=== PATIENT | male | born 1975 | race African-American/Black ===

== ENCOUNTER 2017-03-18 14:51 | Emergency (ER) | payer MEDICAID ==
[~2017-03-18] VITALS: Ht 180.3 cm; Wt 84.0 kg
[2017-03-18 15:09] VITALS: BP 116/80
== END 2017-03-18 16:26 | disposition left against medical advice (07) ==
LOC: ER 15:22
DX: R07.9 Chest pain, unspecified (principal); Z53.21 Procedure and treatment not carried out due to patient leaving prior to being seen by health care provider
CPT/HCPCS: 93005

== ENCOUNTER 2022-02-21 10:12 | Inpatient (IN) | payer MEDICAID, OTHER ==
[~2022-02-21] VITALS: Ht 182.9 cm; Wt 80.3 kg
[2022-02-21] MEDS ORDERED: ACETAMINOPHEN 325MG TABLET PO ONE (10:45)
[2022-02-21 10:55] LABS: BASOPHILS % 0.8 % (0.0-2.0); EOSINOPHILS % 3.6 % (0.0-5.0); HEMATOCRIT. 27.2 % (42.0-52.0); LYMPHOCYTES % 15.6 % (20.0-50.0); MEAN CORPUSCULAR HEMOGLOBIN 31.1 pg (28.0-32.0); MEAN CORPUSCULAR VOLUME 94.4 fL (80.0-94.0); MEAN PLATELET VOLUME 9.4 fl (7.4-10.4); MONOCYTES % 8.7 % (2.0-8.0); NEUTROPHILS % 71.3 % (40.0-76.0); PLATELET 179 x1000/uL (130-400); RED BLOOD CELL COUNT 2.88 mill/uL (4.7-6.1); RED CELL DISTRIBUTION WIDTH 15.2 % (11.6-14.6)
[2022-02-21 11:19] LABS: CHLORIDE 119 mEq/L (98-107)
[2022-02-21 11:31] LABS: ETHANOL BLOOD < 10 mg/dL
[2022-02-21] MEDS ORDERED: HYDRALAZINE 20MG/ML VIAL IV ONE (12:15)
[2022-02-21] MEDS ORDERED: ASPIRIN 325MG TABLET PO NR (12:15)
[2022-02-21 13:10] LABS: BG BASE EXCESS -0.1 mmol/L (-2.0-2.0); BG CARBOXYHEMOGLOBIN 0.9 % (0.5-1.5); BG DEOXYHEMOGLOBIN 12.9 % (0.0-5.0); BG FRACTION INSPIRED OXYGEN 34; BG HCO3 ACT 23.1 mmol/L (22.0-26.0); BG METHEMOGLOBIN 0.3 % (0.0-1.5); BG OXYGEN SATURATION 86.9 % (92.0-98.5); BG OXYHEMOGLOBIN 85.9 % (94.0-97.0); BG PCO2 32.1 mmHg (35.0-45.0); BG PH 7.475 (7.350-7.450); BG PO2 50.9 mmHg (75.0-100.0); BG SAMPLE SITE RIGHT RADIAL; BG TOTAL HEMOGLOBIN 9.9 g/dL (12.0-18.0); BG VENT MODE NASAL CANNULA
[2022-02-21] MEDS: CLONIDINE 0.1MG TABLET PO SCH ×2 (13:45→17:00)
[2022-02-21] MEDS ORDERED: HYDRALAZINE 20MG/ML VIAL IV PRN (13:45)
[2022-02-21] MEDS: HYDRALAZINE HCL 100MG TABLET PO SCH ×2 (14:00→22:44)
[2022-02-21] MEDS ORDERED: IPRATROPIUM/ALBUTEROL 0.5-3(2.5)MG/3ML NEB HHN PRN (14:15)
[2022-02-21] MEDS ORDERED: AZITHROMYCIN 500MG/250ML 250 ML IV SCH (14:15)
[2022-02-21] MEDS ORDERED: CEFTRIAXONE 1 G PREMIX 50 ML IV SCH (14:15)
[2022-02-21] MEDS: AMLODIPINE 5MG TABLET PO SCH (17:00)
[2022-02-21] MEDS: IPRATROPIUM/ALBUTEROL 0.5-3(2.5)MG/3ML NEB HHN SCH (19:49)
[2022-02-21] MEDS ORDERED: MORPHINE SULFATE 2 MG/ML CPJ (NOT FOR IM USE) IV SCH (21:45)
[2022-02-21 23:36] VITALS: BP 176/102
[2022-02-21 23:59] VITALS: BP 176/102
[2022-02-22] VITALS (21 sets, daily range): BP systolic 128–188; BP diastolic 77–127
[2022-02-22] MEDS: IPRATROPIUM/ALBUTEROL 0.5-3(2.5)MG/3ML NEB HHN SCH ×4 (01:23→22:18)
[2022-02-22] MEDS ORDERED: FERR-63 PO (01:42)
[2022-02-22] MEDS ORDERED: SEVELAMER PO (01:42)
[2022-02-22] MEDS ORDERED: SEVELAMER (01:42)
[2022-02-22] MEDS ORDERED: LABE100T9 PO (01:42)
[2022-02-22] MEDS ORDERED: CALC0.253 PO (01:42)
[2022-02-22] MEDS ORDERED: ISOS60TA76 PO (01:42)
[2022-02-22] MEDS ORDERED: CLOP75TA33 PO (01:42)
[2022-02-22] MEDS ORDERED: ATOR40TA70 PO (01:42)
[2022-02-22] MEDS ORDERED: DOCU250C14 PO (01:42)
[2022-02-22] MEDS ORDERED: FUROSEMIDE 40MG/4ML VIAL IVP NR (02:15)
[2022-02-22] MEDS ORDERED: GUAIFENESIN 200MG/10ML SUGAR FREE UDC PO PRN (02:15)
[2022-02-22] MEDS ORDERED: DOCUSATE SODIUM 250MG CAPSULE PO SCH (02:30)
[2022-02-22] MEDS: MORPHINE SULFATE 2 MG/ML CPJ (NOT FOR IM USE) IV PRN ×3 (02:32→11:38)
[2022-02-22] MEDS: ZOLPIDEM TARTRATE 5MG TABLET PO PRN ×2 (02:33→23:27)
[2022-02-22 05:23] LABS: CHLORIDE 112 mEq/L (98-107)
[2022-02-22 05:29] LABS: BASOPHILS % 0.7 % (0.0-2.0); EOSINOPHILS % 3.9 % (0.0-5.0); HEMATOCRIT. 27.7 % (42.0-52.0); LYMPHOCYTES % 18.6 % (20.0-50.0); MEAN CORPUSCULAR HEMOGLOBIN 30.4 pg (28.0-32.0); MEAN CORPUSCULAR VOLUME 93.4 fL (80.0-94.0); MEAN PLATELET VOLUME 9.7 fl (7.4-10.4); MONOCYTES % 9.4 % (2.0-8.0); NEUTROPHILS % 67.4 % (40.0-76.0); PLATELET 167 x1000/uL (130-400); RED BLOOD CELL COUNT 2.97 mill/uL (4.7-6.1); RED CELL DISTRIBUTION WIDTH 14.8 % (11.6-14.6)
[2022-02-22] MEDS: HYDRALAZINE HCL 100MG TABLET PO SCH ×3 (06:26→23:18)
[2022-02-22] MEDS ORDERED: HYDRALAZINE 20MG/ML VIAL IV PRN (07:00)
[2022-02-22] MEDS: ACETAMINOPHEN 650MG/20.3ML UDC PO PRN ×3 (08:16→20:50)
[2022-02-22] MEDS: CLOPIDOGREL 75MG TABLET PO SCH (08:16)
[2022-02-22] MEDS: CALCITRIOL 0.25MCG CAPSULE PO SCH (08:17)
[2022-02-22] MEDS: ISOSORBIDE MONONITRATE 60MG TABLET SR 24HR PO SCH (08:17)
[2022-02-22] MEDS: HEPARIN 5000 UNITS/ML VIAL SUBCUT SCH ×2 (08:18→23:18)
[2022-02-22] MEDS: AMLODIPINE 5MG TABLET PO SCH ×2 (08:18→23:19)
[2022-02-22] MEDS: ASPIRIN 81MG EC TABLET PO SCH (08:18)
[2022-02-22] MEDS: CLONIDINE 0.1MG TABLET PO SCH ×3 (08:18→17:13)
[2022-02-22] MEDS ORDERED: LABETALOL HCL 100MG TABLET PO SCH (09:00)
[2022-02-22] MEDS ORDERED: FERROUS SULFATE 325MG TABLET PO SCH ×2 (09:00)
[2022-02-22] MEDS ORDERED: ATORVASTATIN CALCIUM 40MG TABLET PO SCH (09:00)
[2022-02-22] MEDS: LABETALOL HCL 100MG TABLET PO SCH ×2 (11:38→23:19)
[2022-02-22] MEDS ORDERED: NALOXONE HCL 0.4MG/ML VIAL IV PRN (13:30)
[2022-02-22] MEDS ORDERED: DOCUSATE SODIUM 250MG CAPSULE PO PRN (13:30)
[2022-02-22] MEDS ORDERED: AZITHROMYCIN 500 MG in DEXT 5% WATER 250 ML IV SCH (15:00)
[2022-02-22] MEDS ORDERED: CEFTRIAXONE 1,000 MG in DEXTROSE 5% WATER 50 ML IV SCH (18:00)
[2022-02-22] MEDS: FERROUS SULFATE 325MG TABLET PO SCH (18:06)
[2022-02-22] MEDS: HYDROCODONE/ACETAMINOPHEN 5/325MG TABLET PO PRN (23:27)
[2022-02-23] VITALS (18 sets, daily range): BP systolic 110–152; BP diastolic 61–106
[2022-02-23] MEDS: IPRATROPIUM/ALBUTEROL 0.5-3(2.5)MG/3ML NEB HHN SCH ×3 (02:08→14:00)
[2022-02-23] MEDS: ACETAMINOPHEN 650MG/20.3ML UDC PO PRN ×2 (03:43→14:44)
[2022-02-23] MEDS: HYDRALAZINE HCL 100MG TABLET PO SCH ×2 (06:03→14:00)
[2022-02-23 07:57] LABS: BASOPHILS % 0.8 % (0.0-2.0); EOSINOPHILS % 7.6 % (0.0-5.0); HEMOGLOBIN. 9.1 g/dL (14.0-18.0); MEAN CORPUSCULAR HEMOGLOBIN 31.3 pg (28.0-32.0); MEAN CORPUSCULAR VOLUME 92.6 fL (80.0-94.0); MEAN PLATELET VOLUME 9.2 fl (7.4-10.4); MONOCYTES % 8.9 % (2.0-8.0); NEUTROPHILS % 64.7 % (40.0-76.0); PLATELET 191 x1000/uL (130-400); RED BLOOD CELL COUNT 2.91 mill/uL (4.7-6.1); RED CELL DISTRIBUTION WIDTH 14.8 % (11.6-14.6)
[2022-02-23] MEDS: HYDROCODONE/ACETAMINOPHEN 5/325MG TABLET PO PRN (08:16)
[2022-02-23] MEDS: CLOPIDOGREL 75MG TABLET PO SCH (08:17)
[2022-02-23] MEDS: ASPIRIN 81MG EC TABLET PO SCH (08:17)
[2022-02-23] MEDS: FERROUS SULFATE 325MG TABLET PO SCH ×2 (08:17→17:36)
[2022-02-23] MEDS: CALCITRIOL 0.25MCG CAPSULE PO SCH (08:18)
[2022-02-23] MEDS: LABETALOL HCL 100MG TABLET PO SCH (08:18)
[2022-02-23] MEDS: HEPARIN 5000 UNITS/ML VIAL SUBCUT SCH (08:18)
[2022-02-23] MEDS: CLONIDINE 0.1MG TABLET PO SCH ×3 (08:19→17:00)
[2022-02-23] MEDS: AMLODIPINE 5MG TABLET PO SCH (08:19)
[2022-02-23] MEDS: ISOSORBIDE MONONITRATE 60MG TABLET SR 24HR PO SCH (08:40)
[2022-02-23] MEDS ORDERED: FUROSEMIDE 40MG/4ML VIAL IVP SCH (12:00)
[2022-02-23] MEDS ORDERED: EPOETIN ALFA-EPBX 4,000 UNIT/ML VIAL SUBCUT SCH (21:00)
[2022-02-23] MEDS ORDERED: ATORVASTATIN CALCIUM 40MG TABLET PO SCH (21:00)
[2022-02-24] MEDS ORDERED: HYDR-4001 MT (00:34)
[2022-02-26 22:22] LABS: HEPATITIS B SURFACE AB < 3.1 mIU/mL
[2022-02-26 22:32] LABS: HEPATITIS B SURFACE ANTIGEN NEGATIVE
== END 2022-02-23 18:30 | disposition home or self-care (01) | DRG 194 ==
LOC: ER 10:12 → MICUSO 12:57 → EDBEDREQ 13:04 → EDBEDREQSVC 13:04 → EDBEDREQTM 13:04 → 5EST 23:49
PROVIDERS: ADMIT Internal Medicine; ATTEND Internal Medicine
PROC: 5A09357 Assistance with Respiratory Ventilation, Less than 24 Consecutive Hours, Continuous Positive Airway Pressure (ICD-10-PCS; principal; 2022-02-21)
PROC: 5A09357 Assistance with Respiratory Ventilation, Less than 24 Consecutive Hours, Continuous Positive Airway Pressure (ICD-10-PCS; 2022-02-22)
PROC: 5A1D70Z Performance of Urinary Filtration, Intermittent, Less than 6 Hours Per Day (ICD-10-PCS; 2022-02-22)
PROC: 5A1D70Z Performance of Urinary Filtration, Intermittent, Less than 6 Hours Per Day (ICD-10-PCS; 2022-02-23)
DX: I13.2 Hypertensive heart and chronic kidney disease with heart failure and with stage 5 chronic kidney disease, or end stage renal disease (principal); J96.01 Acute respiratory failure with hypoxia; J18.9 Pneumonia, unspecified organism; E46 Unspecified protein-calorie malnutrition; E87.0 Hyperosmolality and hypernatremia; D63.1 Anemia in chronic kidney disease; E88.09 Other disorders of plasma-protein metabolism, not elsewhere classified; N18.6 End stage renal disease; I50.21 Acute systolic (congestive) heart failure; Z20.822 Contact with and (suspected) exposure to COVID-19; D72.829 Elevated white blood cell count, unspecified; K21.9 Gastro-esophageal reflux disease without esophagitis; F17.210 Nicotine dependence, cigarettes, uncomplicated; Z79.899 Other long term (current) drug therapy; Z99.2 Dependence on renal dialysis; Z68.24 Body mass index [BMI] 24.0-24.9, adult
CPT/HCPCS: 36415; 36600; 71045; 80048; 80053; 80320; 82375; 82805; 83735; 83880; 84145; 84443; 84484; 85025; 85379; 86705; 86706; 87340; 87426; 90935; 93005; 93306; 93970; 94640; 94660; 99291; C9803; J0360; J0456; J0696; J0885; J1644; J1940; J2270; J7060; G0480

== ENCOUNTER 2022-09-15 12:09 | Inpatient (IN) | payer MEDICARE, MEDICAID ==
[~2022-09-15] VITALS: Ht 180.3 cm; Wt 79.8 kg
[~2022-09-15 12:09] MED LIST: ATOR40TA70 PO; CALC0.253 PO; CLOP75TA33 PO; DOCU250C14 PO; FERR-63 PO; HYDR-4001 MT; ISOS60TA76 PO; LABE100T9 PO; SEVELAMER; SEVELAMER PO
[2022-09-15 12:22] VITALS: O2SAT 100
[2022-09-15 13:12] LABS: HEMATOCRIT. 29.9 % (42.0-52.0); MEAN CORPUSCULAR HEMOGLOBIN 30.1 pg (28.0-32.0); MEAN CORPUSCULAR VOLUME 90.2 fL (80.0-94.0); RED BLOOD CELL COUNT 3.31 mill/uL (4.7-6.1); RED CELL DISTRIBUTION WIDTH 16.6 % (11.6-14.6)
[2022-09-15 13:13] LABS: EOSINOPHILS % 4.4 % (0.0-5.0); LYMPHOCYTES % 36.3 % (20.0-50.0); MEAN PLATELET VOLUME 8.7 fl (7.4-10.4); MONOCYTES % 7.4 % (2.0-8.0); NEUTROPHILS % 50.9 % (40.0-76.0); PLATELET 284 x1000/uL (130-400)
[2022-09-15 13:21] LABS: CHLORIDE 114 mEq/L (98-107)
[2022-09-15 13:23] LABS: INR 1.1; PROTHROMBIN TIME 11.7 sec (9.6-11.0)
[2022-09-15] MEDS ORDERED: DEXTROSE 50% WATER 50ML SYRINGE IV ONE (14:00)
[2022-09-15] MEDS ORDERED: SODIUM BICARBONATE 8.4% 1 MEQ/ML 50ML SYR IV ONE (14:00)
[2022-09-15] MEDS ORDERED: CALCIUM GLUCONATE 1GM PREMIX 100 ML IV NR (14:00)
[2022-09-15] MEDS ORDERED: INSULIN REGULAR (HUMULIN R) 300UNITS/3ML VIAL IV ONE (14:00)
[2022-09-15] MEDS ORDERED: INSULIN REGULAR (HUMULIN R) 300UNITS/3ML VIAL IV NR (14:00)
[2022-09-15] MEDS ORDERED: SODIUM BICARBONATE 8.4% 1 MEQ/ML 50ML SYR IV NR (14:00)
[2022-09-15] MEDS ORDERED: CALCIUM GLUCONATE 1,000 MG in DEXT 5% WATER 100 ML IV ONE (14:00)
[2022-09-15] MEDS ORDERED: LORAZEPAM 0.5MG TABLET PO PRN (18:15)
[2022-09-15] MEDS ORDERED: IPRATROPIUM/ALBUTEROL 0.5-3(2.5)MG/3ML NEB HHN PRN (18:15)
[2022-09-15] MEDS ORDERED: MAGNESIUM/ALUMINUM HYDROXIDE/SIMETHICONE 30ML UDC PO PRN (18:15)
[2022-09-15] MEDS ORDERED: ONDANSETRON HCL 4MG/2ML INJ IV PRN (18:15)
[2022-09-15] MEDS ORDERED: GUAIFENESIN 200MG/10ML SUGAR FREE UDC PO PRN (18:15)
[2022-09-15] MEDS ORDERED: DIPHENHYDRAMINE 50MG/ML VIAL IV PRN (18:15)
[2022-09-15] MEDS ORDERED: CLONIDINE 0.1MG TABLET PO PRN (18:15)
[2022-09-15] MEDS ORDERED: DOCUSATE SODIUM 100MG CAPSULE PO PRN (18:15)
[2022-09-15] MEDS ORDERED: ACETAMINOPHEN 325MG TABLET PO PRN (18:15)
[2022-09-15] MEDS ORDERED: DEXTROSE 50% WATER 50ML SYRINGE IV NR (19:35)
[2022-09-15] MEDS ORDERED: ENOXAPARIN 30MG/0.3ML SYR SUBCUT SCH (20:00)
[2022-09-15 20:46] LABS: FOLIC ACID (FOLATE) SERUM 8.9 ng/mL (>5.38)
[2022-09-15] MEDS ORDERED: FAMOTIDINE 20MG TABLET PO SCH (21:00)
[2022-09-15 21:30] VITALS: BP 201/105; PULSE 71; RESP 20; TEMP 98.2
[2022-09-15] MEDS: ATORVASTATIN CALCIUM 40MG TABLET PO SCH (21:46)
[2022-09-15] MEDS: LABETALOL HCL 100MG TABLET PO SCH (21:52)
[2022-09-15] MEDS: ACETAMINOPHEN 325MG TABLET PO PRN (21:53)
[2022-09-15 22:08] LABS: CLARITY URINE CLEAR (CLEAR); COLOR URINE YELLOW (YELLOW); KETONES URINE NEGATIVE (NEGATIVE); LEUKOCYTE ESTERASE URINE NEGATIVE (NEGATIVE); NITRITE URINE NEGATIVE (NEGATIVE); OCCULT BLOOD URINE NEGATIVE (NEGATIVE); PH URINE 5.5 (4.5-8.0); PROTEIN URINE 1+ (NEGATIVE); SPECIFIC GRAVITY URINE 1.015 (1.005-1.030); UROBILINOGEN URINE 0.2 E.U./dL (0.2-1.0)
[2022-09-15 22:19] LABS: *AMPHETAMINES SCREEN URINE NEGATIVE (NEGATIVE); *BARBITURATES SCREEN URINE NEGATIVE (NEGATIVE); *BENZODIAZEPINES SCREEN URINE NEGATIVE (NEGATIVE); *COCAINE SCREEN URINE NEGATIVE (NEGATIVE); CANNABINOID URINE SCREEN PRESUMTIVE POSITIVE (NEGATIVE); METHADONE URINE SCREEN NEGATIVE (NEGATIVE); OPIATES URINE SCREEN NEGATIVE (NEGATIVE); PHENCYCLIDINE URINE SCREEN NEGATIVE (NEGATIVE)
[2022-09-15 22:30] VITALS: BP 201/105; PULSE 71; RESP 20; TEMP 98.2
[2022-09-16] VITALS (13 sets, daily range): BP systolic 138–179; BP diastolic 70–111; PULSE 53–77; RESP 17–20; TEMP 97–98.4
[2022-09-16 02:09] LABS: CREATINE KINASE MB FRACTION 1.3 ng/mL (0.5-3.6)
[2022-09-16 07:08] LABS: EOSINOPHILS % 7.5 % (0.0-5.0); HEMATOCRIT. 27.8 % (42.0-52.0); HEMOGLOBIN. 9.7 g/dL (14.0-18.0); LYMPHOCYTES % 43.9 % (20.0-50.0); MEAN CORPUSCULAR HEMOGLOBIN 31.1 pg (28.0-32.0); MEAN CORPUSCULAR VOLUME 89.3 fL (80.0-94.0); MEAN PLATELET VOLUME 9.2 fl (7.4-10.4); MONOCYTES % 8.3 % (2.0-8.0); NEUTROPHILS % 39.3 % (40.0-76.0); PLATELET 250 x1000/uL (130-400); RED BLOOD CELL COUNT 3.11 mill/uL (4.7-6.1); RED CELL DISTRIBUTION WIDTH 16.7 % (11.6-14.6)
[2022-09-16] MEDS ORDERED: CLOPIDOGREL 75MG TABLET PO SCH (09:00)
[2022-09-16] MEDS: LABETALOL HCL 100MG TABLET PO SCH ×3 (09:00→20:21)
[2022-09-16 10:14] LABS: CREATINE KINASE MB FRACTION 1.3 ng/mL (0.5-3.6)
[2022-09-16] MEDS: CALCITRIOL 0.25MCG CAPSULE PO SCH (10:24)
[2022-09-16] MEDS: FERROUS SULFATE 325MG TABLET PO SCH ×2 (10:24→19:23)
[2022-09-16] MEDS: ISOSORBIDE MONONITRATE 60MG TABLET SR 24HR PO SCH (10:25)
[2022-09-16] MEDS: ACETAMINOPHEN 325MG TABLET PO PRN ×2 (10:26→19:23)
[2022-09-16 10:48] LABS: CHLORIDE 118 mEq/L (98-107)
[2022-09-16 11:05] LABS: T4 FREE 0.92 ng/dL (0.76-1.46)
[2022-09-16] MEDS ORDERED: LIDOCAINE HCL 1% 10 MG/ML 10ML VIAL ONE (14:10)
[2022-09-16] MEDS: OXYCODONE HCL 5MG TABLET PO PRN ×2 (16:27→22:32)
[2022-09-16] MEDS ORDERED: NALOXONE HCL 0.4MG/ML VIAL IV PRN (16:30)
[2022-09-16 17:38] LABS: HEPATITIS B SURFACE ANTIGEN NEGATIVE
[2022-09-16 19:38] LABS: TOTAL IRON BINDING CAPACITY 251 ug/dL (250-450)
[2022-09-16] MEDS: ATORVASTATIN CALCIUM 40MG TABLET PO SCH (20:22)
[2022-09-16] MEDS ORDERED: EPOETIN ALFA 2,000 UNIT/ML VIAL SUBCUT PRN (22:16)
[2022-09-16] MEDS ORDERED: EPOETIN ALFA 2,000 UNIT/ML VIAL SUBCUT NR (22:30)
[2022-09-17] VITALS: BP 150/79; PULSE 64; RESP 20; TEMP 97.2
[2022-09-17] MEDS: ACETAMINOPHEN 325MG TABLET PO PRN ×2 (02:15→14:05)
[2022-09-17 04:00] VITALS: BP 145/86; PULSE 54; RESP 20; TEMP 97.6
[2022-09-17] MEDS: OXYCODONE HCL 5MG TABLET PO PRN ×3 (04:46→16:56)
[2022-09-17 07:11] LABS: HEMATOCRIT 28.6 % (42.0-52.0); HEMOGLOBIN 9.8 g/dL (14.0-18.0); MEAN CORPUSCULAR HEMOGLOBIN 30.2 pg (28.0-32.0); MEAN CORPUSCULAR VOLUME 88.7 fL (80.0-94.0); PLATELET 249 x1000/uL (130-400); RED BLOOD CELL COUNT 3.23 mill/uL (4.7-6.1); RED CELL DISTRIBUTION WIDTH 16.6 % (11.6-14.6)
[2022-09-17 08:00] VITALS: BP 138/82; PULSE 58; RESP 20; TEMP 97.4
[2022-09-17] MEDS: LABETALOL HCL 100MG TABLET PO SCH (09:00)
[2022-09-17] MEDS: ISOSORBIDE MONONITRATE 60MG TABLET SR 24HR PO SCH (09:05)
[2022-09-17] MEDS: CALCITRIOL 0.25MCG CAPSULE PO SCH (09:06)
[2022-09-17] MEDS: FERROUS SULFATE 325MG TABLET PO SCH ×2 (09:06→16:56)
[2022-09-17 10:13] LABS: CHLORIDE 109 mEq/L (98-107)
[2022-09-17 10:22] LABS: PHOSPHORUS 4.8 mg/dL (2.5-4.9)
[2022-09-17 12:00] VITALS: BP 157/88; PULSE 56; RESP 18; TEMP 98.1
[2022-09-17 16:56] VITALS: BP 157/88; PULSE 56; RESP 18
[2022-09-18] MEDS ORDERED: EPOETIN ALFA 2,000 UNIT/ML VIAL SUBCUT SCH (21:00)
== END 2022-09-17 17:28 | disposition left against medical advice (07) | DRG 640 ==
LOC: ER 12:09 → 7WST 17:07
PROVIDERS: ADMIT Hospitalist; ATTEND Hospitalist
PROC: 5A1D70Z Performance of Urinary Filtration, Intermittent, Less than 6 Hours Per Day (ICD-10-PCS; principal; 2022-09-16)
PROC: 02HV33Z Insertion of Infusion Device into Superior Vena Cava, Percutaneous Approach (ICD-10-PCS; 2022-09-16)
PROC: B548ZZA Ultrasonography of Superior Vena Cava, Guidance (ICD-10-PCS; 2022-09-16)
PROC: B5181ZA Fluoroscopy of Superior Vena Cava using Low Osmolar Contrast, Guidance (ICD-10-PCS; 2022-09-16)
DX: E87.5 Hyperkalemia (principal); N18.6 End stage renal disease; I12.0 Hypertensive chronic kidney disease with stage 5 chronic kidney disease or end stage renal disease; D63.1 Anemia in chronic kidney disease; E87.29 Other acidosis; E87.8 Other disorders of electrolyte and fluid balance, not elsewhere classified; Z53.29 Procedure and treatment not carried out because of patient's decision for other reasons; E87.70 Fluid overload, unspecified; F41.9 Anxiety disorder, unspecified; I25.10 Atherosclerotic heart disease of native coronary artery without angina pectoris; I50.9 Heart failure, unspecified; Z99.2 Dependence on renal dialysis; Z91.158 Patient's noncompliance with renal dialysis for other reason; Z91.199 Patient's noncompliance with other medical treatment and regimen due to unspecified reason; Z79.899 Other long term (current) drug therapy
CPT/HCPCS: 36415; 36556; 71045; 76937; 77001; 80053; 80305; 81003; 82550; 82553; 82607; 82746; 83540; 83550; 83735; 84100; 84439; 84443; 84484; 85025; 85027; 86705; 86709; 86803; 87340; 90935; 93005; 99291; C1752; J0610; J1642; J1650; J1815; J3490; J7060

== ENCOUNTER 2022-10-02 10:26 | Emergency (ER) | payer MEDICARE, MEDICAID ==
[~2022-10-02] VITALS: Ht 180.3 cm; Wt 84.0 kg
[~2022-10-02 10:26] MED LIST changes: -HYDR-4001 MT
[2022-10-02 10:41] VITALS: BP 120/76; PULSE 86; RESP 16; TEMP 98.6; O2SAT 99
[2022-10-02] MEDS ORDERED: BACI28.32 TP (10:54)
== END 2022-10-02 11:15 | disposition home or self-care (01) ==
LOC: ER 10:26
DX: S61.512D Laceration without foreign body of left wrist, subsequent encounter (principal); I13.2 Hypertensive heart and chronic kidney disease with heart failure and with stage 5 chronic kidney disease, or end stage renal disease; N18.6 End stage renal disease; I50.9 Heart failure, unspecified; F41.9 Anxiety disorder, unspecified; I25.2 Old myocardial infarction; Z99.2 Dependence on renal dialysis; Z79.899 Other long term (current) drug therapy; X58.XXXD Exposure to other specified factors, subsequent encounter
CPT/HCPCS: 99282

== ENCOUNTER 2023-04-28 07:20 | Inpatient (IN) | payer MEDICARE, MEDICAID ==
[2023-04-28] VITALS (16 sets, daily range): BP systolic 123–178; BP diastolic 75–107; PULSE 57–64; RESP 16–19; TEMP 97.1–98.2
[~2023-04-28] VITALS: Ht 180.3 cm; Wt 74.8 kg
[~2023-04-28 07:20] MED LIST changes: +CLOP-31 PO; -CLOP75TA33 PO; +FURO40TA5 PO; +LISI20TA31 PO; +OMEP20CA14 PO; +SEVE800T8 PO; -SEVELAMER; -SEVELAMER PO
[2023-04-28 08:18] LABS: BASOPHILS % 0.7 % (0.0-2.0); EOSINOPHILS % 4.9 % (0.0-5.0); HEMATOCRIT. 40.6 % (42.0-52.0); HEMOGLOBIN. 13.1 g/dL (14.0-18.0); LYMPHOCYTES % 19.6 % (20.0-50.0); MEAN CORPUSCULAR HEMOGLOBIN 32.3 pg (28.0-32.0); MEAN CORPUSCULAR HGB CONC 32.3 g/dL (31.0-37.0); MEAN PLATELET VOLUME 9.1 fl (7.4-10.4); MONOCYTES % 5.7 % (2.0-8.0); NEUTROPHILS % 69.1 % (40.0-76.0); PLATELET 256 x1000/uL (130-400); RED BLOOD CELL COUNT 4.06 mill/uL (4.7-6.1); RED CELL DISTRIBUTION WIDTH 17.2 % (11.6-14.6); WHITE BLOOD COUNT 7.7 x1000/uL (4.5-11.0)
[2023-04-28] MEDS: ONDANSETRON HCL 4MG/2ML INJ IV ONE (08:22)
[2023-04-28 08:41] LABS: ALANINE AMINOTRANSFERASE 10 IU/L (10-49); ALBUMIN 4.7 g/dL (3.2-4.8); ASPARTATE AMINOTRANSFERASE 21 IU/L (<34); CALCIUM 9.4 mg/dL (8.7-10.4); CARBON DIOXIDE 21 mEq/L (21-32); CHLORIDE 110 mEq/L (98-107); CREATININE 4.4 mg/dL (0.6-1.3); GLUCOSE 78 mg/dL (70-105); POTASSIUM 6.1 mEq/L (3.5-5.1); PROTEIN TOTAL 7.8 g/dL (6.0-8.3); SODIUM 136 mEq/L (136-145); UREA NITROGEN BLOOD 40 mg/dL (9-23)
[2023-04-28 08:53] LABS: CLARITY URINE CLEAR (CLEAR); COLOR URINE YELLOW (YELLOW); GLUCOSE URINE NEGATIVE (NEGATIVE); KETONES URINE NEGATIVE (NEGATIVE); LEUKOCYTE ESTERASE URINE TRACE (NEGATIVE); NITRITE URINE NEGATIVE (NEGATIVE); OCCULT BLOOD URINE NEGATIVE (NEGATIVE); PROTEIN URINE TRACE (NEGATIVE); SPECIFIC GRAVITY URINE 1.012 (1.005-1.030); UROBILINOGEN URINE 0.2 E.U./dL (0.2-1.0)
[2023-04-28 08:53] LABS: TROPONIN I HIGH SENSITIVITY 101 ng/L (3.0-53)
[2023-04-28 09:09] LABS: BACTERIA URINE NONE SEEN; RBC URINE 0-2 /hpf (0-2); SQUAMOUS EPITHELIAL CELL URINE RARE /lpf (RARE/1+); WBC URINE 0-2 /hpf (0-2); YEAST URINE NONE SEEN
[2023-04-28] MEDS ORDERED: ALBUTEROL (0.083%) 2.5MG/3ML NEB HHN ONE (10:00)
[2023-04-28] MEDS: CALCIUM CHLORIDE 1GM/10ML SYR IV ONE (10:43)
[2023-04-28] MEDS: SODIUM BICARBONATE 8.4% 1 MEQ/ML 50ML SYR IV ONE (10:44)
[2023-04-28] MEDS: DEXTROSE 50% WATER 50ML SYRINGE IV ONE (10:44)
[2023-04-28] MEDS: INSULIN REGULAR (HUMULIN R) 300UNITS/3ML VIAL IV ONE (10:44)
[2023-04-28 10:55] LABS: BG BASE EXCESS -9.6 mmol/L (-2.0-2.0); BG CARBOXYHEMOGLOBIN 4.8 % (0.5-1.5); BG FRACTION INSPIRED OXYGEN 21; BG HCO3 ACT 14.6 mmol/L (22.0-26.0); BG METHEMOGLOBIN 0.2 % (0.0-1.5); BG OXYGEN SATURATION 96.8 % (92.0-98.5); BG PCO2 27.7 mmHg (35.0-45.0); BG PH 7.339 (7.350-7.450); BG PO2 92.4 mmHg (75.0-100.0); BG SAMPLE SITE RIGHT BRACHIAL; BG VENT MODE ROOM AIR
[2023-04-28] MEDS ORDERED: MAGNESIUM/ALUMINUM HYDROXIDE/SIMETHICONE 30ML UDC PO PRN (12:15)
[2023-04-28] MEDS ORDERED: IPRATROPIUM/ALBUTEROL 0.5-3(2.5)MG/3ML NEB HHN PRN (12:15)
[2023-04-28] MEDS ORDERED: CLONIDINE 0.1MG TABLET PO PRN (12:15)
[2023-04-28] MEDS ORDERED: GUAIFENESIN 200MG/10ML SUGAR FREE UDC PO PRN (12:15)
[2023-04-28] MEDS ORDERED: DEXTROSE 50% WATER 50ML SYRINGE IV PRN (12:15)
[2023-04-28] MEDS ORDERED: DOCUSATE SODIUM 100MG CAPSULE PO PRN (12:15)
[2023-04-28] MEDS ORDERED: ONDANSETRON HCL 4MG/2ML INJ IV PRN (12:15)
[2023-04-28] MEDS ORDERED: ACETAMINOPHEN 325MG TABLET PO PRN (12:15)
[2023-04-28] MEDS ORDERED: HYDRALAZINE 20MG/ML VIAL IV PRN (12:30)
[2023-04-28] MEDS: BLOOD SUGAR DIAGNOSTIC STRIP TEST SCH (12:40)
[2023-04-28] MEDS: SODIUM POLYSTYRENE SULFONATE 15 G/60 ML BOT PO NR (13:07)
[2023-04-28] MEDS: INSULIN LISPRO 100 UNITS/ML SUBCUT SCH (13:10)
[2023-04-28 13:25] LABS: PHOSPHORUS 3.2 mg/dL (2.5-4.9)
[2023-04-28 13:30] LABS: FOLIC ACID (FOLATE) SERUM 7.51 ng/mL (>5.38); VITAMIN B12 SERUM 886 pg/mL (211-911)
[2023-04-28 14:03] LABS: HEPATITIS A AB IGM NEGATIVE (Negative); HEPATITIS B CORE AB IGM NEGATIVE (Negative); HEPATITIS B SURFACE ANTIGEN NEGATIVE (Negative); HEPATITIS C AB NON REACTIVE (Neg) (Negative)
[2023-04-28 14:24] LABS: *AMPHETAMINES SCREEN URINE NEGATIVE (NEGATIVE); *BARBITURATES SCREEN URINE NEGATIVE (NEGATIVE); *BENZODIAZEPINES SCREEN URINE NEGATIVE (NEGATIVE); *COCAINE SCREEN URINE NEGATIVE (NEGATIVE); CANNABINOID URINE SCREEN NEGATIVE (NEGATIVE); ECSTASY MDMA SCREEN URINE NEGATIVE (NEGATIVE); METHADONE URINE SCREEN Neg (NEGATIVE); OPIATES URINE SCREEN NEGATIVE (NEGATIVE); PHENCYCLIDINE URINE SCREEN NEGATIVE (NEGATIVE)
[2023-04-28 16:07] LABS: CREATINE KINASE 455 IU/L (46-171)
[2023-04-28 16:10] LABS: TROPONIN I HIGH SENSITIVITY 73 ng/L (3.0-53)
[2023-04-28 20:14] LABS: HEPATITIS A AB IGM NEGATIVE (Negative); HEPATITIS B CORE AB IGM NEGATIVE (Negative); HEPATITIS B SURFACE ANTIGEN NEGATIVE (Negative); HEPATITIS C AB NON REACTIVE (Neg) (Negative)
[2023-04-29] MEDS: FAMOTIDINE 20MG TABLET PO SCH (00:07)
[2023-04-29] MEDS: ATORVASTATIN CALCIUM 40MG TABLET PO SCH (00:08)
[2023-04-29] MEDS: LABETALOL HCL 100MG TABLET PO SCH (00:08)
[2023-04-29] MEDS: ACETAMINOPHEN 325MG TABLET PO PRN (00:18)
[2023-04-29 00:30] VITALS: BP 173/96; PULSE 60; RESP 20; TEMP 97.1
[2023-04-29 03:09] LABS: CREATINE KINASE 424 IU/L (46-171)
[2023-04-29 04:00] VITALS: BP 150/95; PULSE 63; RESP 20; TEMP 97.5
[2023-04-29 06:45] LABS: BASOPHILS % 0.8 % (0.0-2.0); EOSINOPHILS % 8.9 % (0.0-5.0); HEMATOCRIT. 38.6 % (42.0-52.0); HEMOGLOBIN. 12.9 g/dL (14.0-18.0); LYMPHOCYTES % 21.6 % (20.0-50.0); MEAN CORPUSCULAR HEMOGLOBIN 32.4 pg (28.0-32.0); MEAN CORPUSCULAR HGB CONC 33.4 g/dL (31.0-37.0); MEAN PLATELET VOLUME 9.6 fl (7.4-10.4); MONOCYTES % 11.2 % (2.0-8.0); NEUTROPHILS % 57.5 % (40.0-76.0); PLATELET 218 x1000/uL (130-400); RED BLOOD CELL COUNT 3.98 mill/uL (4.7-6.1); RED CELL DISTRIBUTION WIDTH 16.7 % (11.6-14.6); WHITE BLOOD COUNT 6.1 x1000/uL (4.5-11.0)
[2023-04-29 07:15] LABS: ALANINE AMINOTRANSFERASE 8 IU/L (10-49); ALBUMIN 4.3 g/dL (3.2-4.8); ASPARTATE AMINOTRANSFERASE 18 IU/L (<34); BILIRUBIN TOTAL 0.6 mg/dL (0.1-1.0); CALCIUM 8.8 mg/dL (8.7-10.4); CARBON DIOXIDE 22 mEq/L (21-32); CHLORIDE 108 mEq/L (98-107); CHOLESTEROL 145 mg/dL (<200); CREATININE 3.2 mg/dL (0.6-1.3); GLUCOSE 85 mg/dL (70-105); HDL CHOLESTEROL 74 mg/dL (>55); LDL CHOLESTEROL 48 mg/dL (5-100); POTASSIUM 4.5 mEq/L (3.5-5.1); SODIUM 138 mEq/L (136-145); T4 FREE 1.13 ng/dL (0.89-1.76); THYROID STIMULATING HORMONE 1.21 uIU/mL (0.55-4.78); TRIGLYCERIDE 46 mg/dL (0-150); UREA NITROGEN BLOOD 28 mg/dL (9-23)
[2023-04-29 08:00] VITALS: BP_SYST 136; BP_SYST 147; BP_SYST 149; BP_DIAS 109; BP_DIAS 86; BP_DIAS 92; PULSE 70; RESP 20; TEMP 97; TEMP 97.6
[2023-04-29 08:12] LABS: TROPONIN I HIGH SENSITIVITY 66 ng/L (3.0-53)
[2023-04-29] MEDS: FUROSEMIDE 40MG/4ML VIAL IV SCH (08:44)
[2023-04-29] MEDS ORDERED: LISINOPRIL 20MG TABLET PO SCH (09:00)
[2023-04-29] MEDS: LISINOPRIL 20MG TABLET PO SCH (09:07)
[2023-04-29] MEDS: CLOPIDOGREL 75MG TABLET PO SCH (09:08)
[2023-04-29] MEDS ORDERED: HYDR-3782 MT (12:07)
[2023-04-29 13:00] VITALS: BP 129/75; PULSE 79; TEMP 97.6; O2SAT 98
== END 2023-04-29 13:40 | disposition home or self-care (01) | DRG 640 ==
LOC: ER 07:20 → 7WST 09:58 → EDBEDREQ 10:05 → EDBEDREQTM 10:05
PROVIDERS: ADMIT Internal Medicine; ATTEND Internal Medicine
PROC: 5A1D70Z Performance of Urinary Filtration, Intermittent, Less than 6 Hours Per Day (ICD-10-PCS; principal; 2023-04-28)
DX: E87.5 Hyperkalemia (principal); N18.6 End stage renal disease; I13.2 Hypertensive heart and chronic kidney disease with heart failure and with stage 5 chronic kidney disease, or end stage renal disease; E78.5 Hyperlipidemia, unspecified; F41.9 Anxiety disorder, unspecified; I25.10 Atherosclerotic heart disease of native coronary artery without angina pectoris; F17.210 Nicotine dependence, cigarettes, uncomplicated; I50.9 Heart failure, unspecified; Z79.02 Long term (current) use of antithrombotics/antiplatelets; Z99.2 Dependence on renal dialysis; I25.2 Old myocardial infarction; Z91.199 Patient's noncompliance with other medical treatment and regimen due to unspecified reason; M54.12 Radiculopathy, cervical region; E56.8 Deficiency of other vitamins
CPT/HCPCS: 36415; 36600; 71045; 80053; 80061; 80305; 81003; 82375; 82550; 82607; 82746; 82805; 82962; 83036; 83735; 83880; 84100; 84439; 84443; 84484; 85025; 86705; 86709; 87340; 90935; 93005; 93306; 97162; 97166; 99291; J1815; J1940; J2405; J3490

== ENCOUNTER 2023-12-28 06:19 | Inpatient (IN) | payer MEDICARE, MEDICAID ==
[~2023-12-28] VITALS: Ht 180.3 cm; Wt 77.1 kg
[~2023-12-28 06:19] MED LIST changes: +HYDR-3782 MT
[2023-12-28 06:26] VITALS: O2SAT 100
[2023-12-28] MEDS ORDERED: HEPARIN 5000 UNITS/ML VIAL IV ONE (06:45)
[2023-12-28] MEDS ORDERED: CALCIUM GLUCONATE 1,000 MG in DEXT 5% WATER 100 ML IV ONE (06:45)
[2023-12-28] MEDS: ASPIRIN 325MG TABLET PO ONE (07:33)
[2023-12-28] MEDS: CALCIUM GLUCONATE 1GM PREMIX 50 ML IV SCH (07:42)
[2023-12-28 07:45] LABS: DIFFERENTIAL COMMENT 0; EOSINOPHILS % 7.4 % (0.0-5.0); HEMATOCRIT. 40.6 % (42.0-52.0); HEMOGLOBIN. 12.6 g/dL (14.0-18.0); LYMPHOCYTES % 20.4 % (20.0-50.0); MEAN CORPUSCULAR HEMOGLOBIN 30.8 pg (28.0-32.0); MEAN CORPUSCULAR HGB CONC 31.1 g/dL (31.0-37.0); MEAN PLATELET VOLUME 9.9 fl (7.4-10.4); MONOCYTES % 6.5 % (2.0-8.0); NEUTROPHILS % 64.7 % (40.0-76.0); PLATELET 261 x1000/uL (130-400); WHITE BLOOD COUNT 8.3 x1000/uL (4.5-11.0)
[2023-12-28 07:49] LABS: CHLORIDE 114 mEq/L (98-107); SODIUM 140 mEq/L (136-145)
[2023-12-28 07:50] LABS: CALCIUM 9.5 mg/dL (8.7-10.4); CARBON DIOXIDE 20 mEq/L (21-32)
[2023-12-28 07:55] LABS: CREATININE 4.1 mg/dL (0.6-1.3); GLUCOSE 89 mg/dL (70-105); UREA NITROGEN BLOOD 49 mg/dL (9-23)
[2023-12-28 08:19] LABS: TROPONIN I HIGH SENSITIVITY 711 ng/L (3.0-53)
[2023-12-28] MEDS ORDERED: DOCUSATE SODIUM 100MG CAPSULE PO PRN (10:00)
[2023-12-28] MEDS ORDERED: ONDANSETRON HCL 4MG/2ML INJ IV PRN (10:00)
[2023-12-28] MEDS ORDERED: CLONIDINE 0.1MG TABLET PO PRN (10:00)
[2023-12-28] MEDS ORDERED: GUAIFENESIN 200MG/10ML SUGAR FREE UDC PO PRN (10:00)
[2023-12-28] MEDS ORDERED: IPRATROPIUM/ALBUTEROL 0.5-3(2.5)MG/3ML NEB HHN PRN (10:00)
[2023-12-28] MEDS ORDERED: LORAZEPAM 0.5MG TABLET PO PRN ×2 (10:00→15:15)
[2023-12-28] MEDS ORDERED: ACETAMINOPHEN 325MG TABLET PO PRN (10:00)
[2023-12-28] MEDS ORDERED: NITROGLYCERIN 0.4MG TABLET SL SL PRN (10:15)
[2023-12-28] MEDS: AMLODIPINE 5MG TABLET PO SCH (11:03)
[2023-12-28 11:07] LABS: TROPONIN I HIGH SENSITIVITY 649 ng/L (3.0-53)
[2023-12-28 11:28] LABS: LDL CHOLESTEROL 94 mg/dL (5-100); TRIGLYCERIDE 88 mg/dL (0-150)
[2023-12-28 11:29] LABS: ALANINE AMINOTRANSFERASE 8 IU/L (10-49); ALBUMIN 3.8 g/dL (3.2-4.8); ASPARTATE AMINOTRANSFERASE 15 IU/L (<34)
[2023-12-28 11:30] LABS: BILIRUBIN DIRECT 0.2 mg/dL (<=3.0); BILIRUBIN TOTAL 0.8 mg/dL (0.1-1.0); CHOLESTEROL 191 mg/dL (<200); HDL CHOLESTEROL 64 mg/dL (>55); PHOSPHORUS 3.1 mg/dL (2.5-4.9); PROTEIN TOTAL 5.1 g/dL (6.0-8.3)
[2023-12-28 11:57] LABS: TROPONIN I HIGH SENSITIVITY 625 ng/L (3.0-53)
[2023-12-28 12:19] LABS: CLARITY URINE CLEAR (CLEAR); COLOR URINE YELLOW (YELLOW); GLUCOSE URINE NEGATIVE (NEGATIVE); KETONES URINE NEGATIVE (NEGATIVE); LEUKOCYTE ESTERASE URINE NEGATIVE (NEGATIVE); NITRITE URINE NEGATIVE (NEGATIVE); OCCULT BLOOD URINE NEGATIVE (NEGATIVE); PH URINE 5.5 (4.5-8.0); PROTEIN URINE 1+ (NEGATIVE); SPECIFIC GRAVITY URINE 1.015 (1.005-1.030); UROBILINOGEN URINE 0.2 E.U./dL (0.2-1.0)
[2023-12-28 12:43] LABS: *AMPHETAMINES SCREEN URINE NEGATIVE (NEGATIVE); *BARBITURATES SCREEN URINE NEGATIVE (NEGATIVE); *BENZODIAZEPINES SCREEN URINE NEGATIVE (NEGATIVE); *COCAINE SCREEN URINE NEGATIVE (NEGATIVE); CANNABINOID URINE SCREEN PRESUMPTIVE POSITIVE (NEGATIVE); ECSTASY MDMA SCREEN URINE NEGATIVE (NEGATIVE); METHADONE URINE SCREEN NEGATIVE (NEGATIVE); OPIATES URINE SCREEN NEGATIVE (NEGATIVE); PHENCYCLIDINE URINE SCREEN NEGATIVE (NEGATIVE)
[2023-12-28 13:35] LABS: BACTERIA URINE NONE SEEN; RBC URINE NONE SEEN /hpf (0-2); SQUAMOUS EPITHELIAL CELL URINE NONE SEEN /lpf (RARE/1+); WBC URINE 0-2 /hpf (0-2)
[2023-12-28 16:51] LABS: IRON 38 ug/dL (65-175)
[2023-12-28 16:54] LABS: TOTAL IRON BINDING CAPACITY 249 ug/dl (250-425)
[2023-12-28 16:57] LABS: FERRITIN 168 ng/mL (22-322); FOLIC ACID (FOLATE) SERUM 15.48 ng/mL (>5.38); VITAMIN B12 SERUM 827 pg/mL (211-911)
[2023-12-28 17:00] VITALS: BP 144/86; PULSE 58; RESP 18; TEMP 37.2252; O2SAT 99
[2023-12-28] MEDS: FUROSEMIDE 40MG TABLET PO SCH (17:38)
[2023-12-28] MEDS: ACETAMINOPHEN 325MG TABLET PO PRN (17:40)
[2023-12-28 20:06] VITALS: BP 147/94; PULSE 62; RESP 20; TEMP 36.44736; O2SAT 98
[2023-12-28] MEDS ORDERED: ATORVASTATIN CALCIUM 20MG TABLET PO SCH (21:00)
[2023-12-28] MEDS: LISINOPRIL 20MG TABLET PO SCH (21:13)
[2023-12-28] MEDS: ATORVASTATIN CALCIUM 40MG TABLET PO SCH (21:13)
[2023-12-28 22:19] LABS: CREATINE KINASE MB FRACTION 1.3 ng/mL (0.5-3.6)
[2023-12-29] VITALS (8 sets, daily range): BP systolic 148–186; BP diastolic 79–111; PULSE 54–74; RESP 18–20; TEMP 36.44736–36.696; O2SAT 97–100
[2023-12-29 06:39] LABS: HEMATOCRIT 37.7 % (42.0-52.0); HEMOGLOBIN 12.3 g/dL (14.0-18.0); MEAN CORPUSCULAR HEMOGLOBIN 31.8 pg (28.0-32.0); MEAN CORPUSCULAR HGB CONC 32.5 g/dL (31.0-37.0); MEAN CORPUSCULAR VOLUME 97.8 fL (80.0-94.0); PLATELET 233 x1000/uL (130-400); RED BLOOD CELL COUNT 3.86 mill/uL (4.7-6.1); RED CELL DISTRIBUTION WIDTH 16.2 % (11.6-14.6); WHITE BLOOD COUNT 6.9 x1000/uL (4.5-11.0)
[2023-12-29] MEDS: PANTOPRAZOLE 40MG DR TABLET PO SCH (06:39)
[2023-12-29 07:24] LABS: POTASSIUM 4.8 mEq/L (3.5-5.1)
[2023-12-29 07:25] LABS: CALCIUM 9.4 mg/dL (8.7-10.4)
[2023-12-29 07:34] LABS: T4 FREE 1.08 ng/dL (0.89-1.76); THYROID STIMULATING HORMONE 1.08 uIU/mL (0.55-4.78)
[2023-12-29 08:04] LABS: TROPONIN I HIGH SENSITIVITY 721 ng/L (3.0-53)
[2023-12-29] MEDS: ASPIRIN 81MG TABLET PO SCH (08:45)
[2023-12-29] MEDS: CLOPIDOGREL 75MG TABLET PO SCH (08:45)
[2023-12-29] MEDS: CALCITRIOL 0.25MCG CAPSULE PO SCH (08:46)
[2023-12-29] MEDS: ENOXAPARIN 30MG/0.3ML SYR SUBCUT SCH (08:48)
[2023-12-29] MEDS ORDERED: AMLODIPINE 10MG TABLET PO SCH (09:00)
[2023-12-29] MEDS: HYDRALAZINE 20MG/ML VIAL IV PRN (12:42)
[2023-12-29] MEDS: HYDRALAZINE 20MG/ML VIAL IV NR (15:35)
[2023-12-29 17:55] LABS: TROPONIN I HIGH SENSITIVITY 620 ng/L (3.0-53)
[2023-12-30] MEDS ORDERED: FUROSEMIDE 40MG/4ML VIAL IVP SCH (09:00)
[2023-12-30] MEDS ORDERED: FERROUS SULFATE 325MG TABLET PO SCH (09:00)
[2023-12-30] MEDS ORDERED: AMLODIPINE 10MG TABLET PO SCH (09:00)
== END 2023-12-29 17:54 | disposition left against medical advice (07) | DRG 205 ==
LOC: ER 06:19 → 5WST 08:32 → 8WST 23:58
PROVIDERS: ADMIT Preventive Medicine Clinical Informatics; ATTEND Preventive Medicine Clinical Informatics
DX: M94.0 Chondrocostal junction syndrome [Tietze] (principal); I21.A1 Myocardial infarction type 2; N18.6 End stage renal disease; I50.32 Chronic diastolic (congestive) heart failure; I13.2 Hypertensive heart and chronic kidney disease with heart failure and with stage 5 chronic kidney disease, or end stage renal disease; I49.5 Sick sinus syndrome; Z53.29 Procedure and treatment not carried out because of patient's decision for other reasons; E78.5 Hyperlipidemia, unspecified; G43.909 Migraine, unspecified, not intractable, without status migrainosus; D53.9 Nutritional anemia, unspecified; D63.1 Anemia in chronic kidney disease; K21.9 Gastro-esophageal reflux disease without esophagitis; T50.995A Adverse effect of other drugs, medicaments and biological substances, initial encounter; F17.210 Nicotine dependence, cigarettes, uncomplicated; I25.10 Atherosclerotic heart disease of native coronary artery without angina pectoris; D63.8 Anemia in other chronic diseases classified elsewhere; Z79.899 Other long term (current) drug therapy; Z56.0 Unemployment, unspecified; Z99.2 Dependence on renal dialysis; Z79.82 Long term (current) use of aspirin; Z91.199 Patient's noncompliance with other medical treatment and regimen due to unspecified reason; Z79.02 Long term (current) use of antithrombotics/antiplatelets; Y92.89 Other specified places as the place of occurrence of the external cause; I16.0 Hypertensive urgency
CPT/HCPCS: 36415; 71045; 76770; 80048; 80061; 80076; 80305; 81003; 82550; 82553; 82607; 82728; 82746; 83540; 83550; 83735; 84100; 84439; 84443; 84484; 85025; 85027; 86850; 86900; 93005; 93306; 99291; J0360; J0610; J1650; J7060

== ENCOUNTER 2025-02-07 16:07 | Inpatient (IN) | payer MEDICARE, MEDICAID ==
[~2025-02-07] VITALS: Ht 182.9 cm; Wt 74.8 kg
[2025-02-07 16:15] VITALS: O2SAT 100
[2025-02-07] MEDS: MORPHINE SULFATE 4 MG/ML INJ (FOR IV/IM USE) IV ONE (17:07)
[2025-02-07] MEDS: ONDANSETRON HCL 4MG/2ML INJ IV ONE (17:07)
[2025-02-07 17:21] LABS: BASOPHILS % 0.7 % (0.0-2.0); EOSINOPHILS % 0.4 % (0.0-5.0); HEMATOCRIT. 37.1 % (42.0-52.0); HEMOGLOBIN. 12.4 g/dL (14.0-18.0); LYMPHOCYTES % 12.3 % (20.0-50.0); MEAN PLATELET VOLUME 8.7 fl (7.4-10.4); MONOCYTES % 4.3 % (2.0-8.0); NEUTROPHILS % 82.3 % (40.0-76.0); PLATELET 315 x1000/uL (130-400); RED BLOOD CELL COUNT 4.05 mill/uL (4.7-6.1); RED CELL DISTRIBUTION WIDTH 14.0 % (11.6-14.6)
[2025-02-07 17:40] LABS: CLARITY URINE CLEAR (CLEAR); COLOR URINE YELLOW (YELLOW); GLUCOSE URINE NEGATIVE (NEGATIVE); KETONES URINE TRACE (NEGATIVE); LEUKOCYTE ESTERASE URINE NEGATIVE (NEGATIVE); NITRITE URINE NEGATIVE (NEGATIVE); OCCULT BLOOD URINE NEGATIVE (NEGATIVE); PH URINE 8.5 (4.5-8.0); PROTEIN URINE 3+ (NEGATIVE); SPECIFIC GRAVITY URINE 1.010 (1.005-1.030); UROBILINOGEN URINE 0.2 E.U./dL (0.2-1.0)
[2025-02-07 17:41] LABS: ASPARTATE AMINOTRANSFERASE 21 IU/L (<34); ETHANOL BLOOD < 10 mg/dL (<10); UREA NITROGEN BLOOD 36 mg/dL (9-23)
[2025-02-07 17:42] LABS: INR 1.1
[2025-02-07 17:43] LABS: BILIRUBIN DIRECT 0.2 mg/dL (<=3.0); BILIRUBIN TOTAL 0.6 mg/dL (0.1-1.0)
[2025-02-07 17:48] LABS: *AMPHETAMINES SCREEN URINE NEGATIVE (NEGATIVE); CREATININE 5.3 mg/dL (0.6-1.3); PROTEIN TOTAL 8.6 g/dL (6.0-8.3)
[2025-02-07 17:49] LABS: *BARBITURATES SCREEN URINE NEGATIVE (NEGATIVE); *BENZODIAZEPINES SCREEN URINE NEGATIVE (NEGATIVE); *COCAINE SCREEN URINE NEGATIVE (NEGATIVE); CANNABINOID URINE SCREEN PRESUMPTIVE POSITIVE (NEGATIVE); ECSTASY MDMA SCREEN URINE NEGATIVE (NEGATIVE); METHADONE URINE SCREEN NEGATIVE (NEGATIVE); OPIATES URINE SCREEN NEGATIVE (NEGATIVE); PHENCYCLIDINE URINE SCREEN NEGATIVE (NEGATIVE); TROPONIN I HIGH SENSITIVITY 74 ng/L (3.0-53)
[2025-02-07 18:03] LABS: BACTERIA URINE TRACE; RBC URINE NONE SEEN /hpf (0-2); SQUAMOUS EPITHELIAL CELL URINE RARE /lpf (RARE/1+); WBC URINE 0-2 /hpf (0-2)
[2025-02-07] MEDS: LABETALOL 5MG/ML 4ML INJ IV ONE (18:37)
[2025-02-07] MEDS ORDERED: HYDROMORPHONE HCL/PF 2MG/ML INJ IV ONE (19:00)
[2025-02-07] MEDS: HYDRALAZINE 20MG/ML VIAL IV ONE (19:56)
[2025-02-07] MEDS: HYDROMORPHONE HCL/PF 1MG/ML INJ IV NR (19:57)
[2025-02-07] MEDS ORDERED: ACETAMINOPHEN 650MG/20.3ML UDC PO PRN (22:45)
[2025-02-07] MEDS ORDERED: CLONIDINE 0.1MG TABLET PO PRN (22:45)
[2025-02-07] MEDS ORDERED: ONDANSETRON HCL 4MG/2ML INJ IV PRN (22:45)
[2025-02-07 22:54] VITALS: BP 107/65; PULSE 76; RESP 19; TEMP 36.418
[2025-02-07 23:20] VITALS: BP 107/65; PULSE 76; RESP 19; TEMP 36.4; O2SAT 100
[2025-02-08] VITALS (9 sets, daily range): BP systolic 128–165; BP diastolic 72–110; PULSE 58–91; RESP 16–20; TEMP 36.2–36.8; O2SAT 98–100
[2025-02-08] MEDS: HYDRALAZINE 20MG/ML VIAL IV PRN (05:15)
[2025-02-08] MEDS: GABAPENTIN 100MG CAPSULE PO SCH (05:16)
[2025-02-08 08:19] LABS: BASOPHILS % 0.2 % (0.0-2.0); EOSINOPHILS % 0.7 % (0.0-5.0); HEMATOCRIT. 33.0 % (42.0-52.0); HEMOGLOBIN. 10.9 g/dL (14.0-18.0); LYMPHOCYTES % 21.0 % (20.0-50.0); MEAN PLATELET VOLUME 8.6 fl (7.4-10.4); MONOCYTES % 9.8 % (2.0-8.0); NEUTROPHILS % 68.3 % (40.0-76.0); PLATELET 297 x1000/uL (130-400); RED BLOOD CELL COUNT 3.58 mill/uL (4.7-6.1); RED CELL DISTRIBUTION WIDTH 13.9 % (11.6-14.6)
[2025-02-08 08:50] LABS: LDL CHOLESTEROL 77.0 mg/dL (5-100); TRIGLYCERIDE 55.0 mg/dL (0-150); UREA NITROGEN BLOOD 46.0 mg/dL (9-23)
[2025-02-08] MEDS: PANTOPRAZOLE SODIUM 40 MG/VIAL IV SCH (09:10)
[2025-02-08] MEDS: CLOPIDOGREL 75MG TABLET PO SCH (09:10)
[2025-02-08] MEDS: NIFEDIPINE XL 60MG TAB PO SCH (09:10)
[2025-02-08] MEDS: CARVEDILOL 12.5MG TABLET PO SCH (09:10)
[2025-02-08 10:17] LABS: CREATININE 5.8 mg/dL (0.6-1.3)
[2025-02-08] MEDS ORDERED: NALOXONE HCL 0.4MG/ML VIAL IV PRN (17:15)
[2025-02-08] MEDS: HYDROCODONE/ACETAMINOPHEN 5/325MG TABLET PO PRN (17:15)
[2025-02-08] MEDS: ATORVASTATIN CALCIUM 40MG TABLET PO SCH (21:00)
[2025-02-08] MEDS: HYDRALAZINE HCL 50MG TABLET PO SCH (21:00)
[2025-02-09] VITALS (11 sets, daily range): BP systolic 84–168; BP diastolic 49–107; PULSE 55–90; RESP 15–20; TEMP 36.3–36.6696; O2SAT 99–100
[2025-02-09] MEDS: SEVELAMER CARBONATE 800 MG TABLET PO SCH (09:37)
[2025-02-09 10:43] LABS: BASOPHILS % 0.5 % (0.0-2.0); EOSINOPHILS % 5.0 % (0.0-5.0); HEMATOCRIT. 34.7 % (42.0-52.0); HEMOGLOBIN. 11.6 g/dL (14.0-18.0); LYMPHOCYTES % 19.1 % (20.0-50.0); MEAN PLATELET VOLUME 8.2 fl (7.4-10.4); MONOCYTES % 6.1 % (2.0-8.0); NEUTROPHILS % 69.3 % (40.0-76.0); PLATELET 342 x1000/uL (130-400); RED BLOOD CELL COUNT 3.76 mill/uL (4.7-6.1); RED CELL DISTRIBUTION WIDTH 14.1 % (11.6-14.6)
[2025-02-09 11:22] LABS: CREATININE 4.8 mg/dL (0.6-1.3)
[2025-02-09 11:23] LABS: UREA NITROGEN BLOOD 32.0 mg/dL (9-23)
[2025-02-09 16:40] LABS: HEPATITIS A AB IGM NEGATIVE (Negative)
[2025-02-09 16:41] LABS: HEPATITIS B CORE AB IGM NEGATIVE (Negative); HEPATITIS C AB NON REACTIVE (Neg) (Negative)
[2025-02-10] VITALS: BP 133/79; PULSE 83; RESP 18; TEMP 36.9; O2SAT 98
[2025-02-10 04:00] VITALS: BP 161/99; PULSE 83; RESP 18; TEMP 36.2; O2SAT 98
[2025-02-10 05:02] VITALS: BP 135/94; PULSE 69; RESP 18; TEMP 97.1
== END 2025-02-10 06:40 | disposition home or self-care (01) | DRG 304 ==
LOC: ER 16:07 → EDBEDREQ 20:11 → EDBEDREQTM 20:11 → ENRESERV 20:51 → 6WST 21:16
PROVIDERS: ADMIT Internal Medicine; ATTEND Internal Medicine
PROC: 5A1D70Z Performance of Urinary Filtration, Intermittent, Less than 6 Hours Per Day (ICD-10-PCS; principal; 2025-02-08)
DX: I16.1 Hypertensive emergency (principal); I50.23 Acute on chronic systolic (congestive) heart failure; N18.6 End stage renal disease; I13.2 Hypertensive heart and chronic kidney disease with heart failure and with stage 5 chronic kidney disease, or end stage renal disease; Z99.2 Dependence on renal dialysis; D64.9 Anemia, unspecified; E11.22 Type 2 diabetes mellitus with diabetic chronic kidney disease; R07.89 Other chest pain; R10.10 Upper abdominal pain, unspecified; Z55.6 Problems related to health literacy; Z87.891 Personal history of nicotine dependence
CPT/HCPCS: 36415; 70486; 70551; 71045; 74176; 80048; 80061; 80076; 80305; 80320; 81003; 84484; 85025; 86705; 86706; 86709; 87340; 90935; 93005; 99291; A4606; J0360; J1171; J2270; J2405; J2470; J3490; G0480